=== PATIENT | male | born 1965 ===

== ENCOUNTER 2019-05-05 23:57 | Emergency (ER) | payer SELFPAY ==
[~2019-05-05 23:57] MED LIST: EPINEPHrine 1:10,000 1 MG/10 ML SYRINGE ONE; SODIUM BICARB 8.4% 50 MEQ/50 ML SYRINGE IV ONE
--- NOTE | 2019-05-06 00:09 | Emergency Department Report ---
ED CPR HPI - General Stated Complaint: CARDIAC ARREST Time Seen by Provider: 05/05/19 23:59 Source: EMS Mode of arrival: Stretcher Limitations: Altered Mental Status, Physical Limitation - History of Present Illness Initial Comments: Patient is a 54-year-old male that presents emergency room in full cardiac arrest. Downtime is unknown. Family called EMS. EMS brought the patient in. EMS intubated the patient with a 7.02. EMS is given the patient 2 rounds of epi. Patient has a past medical history of diabetes, hypertension, hyperlipidemia, CHF. MD Complaint: found unresponsive -: unknown Place: home Bystander CPR Performed: Yes AED Applied by Bystander/Journeyman Powerhouse Operator: No Shock Advised: No Initial Findings in the Field: unresponsive, no respirations, no pulse ROSC in the Field: No Associated Injuries: No Treatments Prior to Arrival: intubation, BMV, chest compressions, epinephrine mgs # - Related Data Allergies Allergy/AdvReac Type Severity Reaction Status Date / Time Unable to Assess Allergy Unverified 05/06/19 00:43 ED Review of Systems ROS: Stated complaint: CARDIAC ARREST Other details as noted in HPI Comment: Unobtainable due to pts medical conditions ED Past Medical Hx - Past Medical History Previous Medical History?: Yes Hx Hypertension: Yes Hx Heart Attack/AMI: Yes Hx Congestive Heart Failure: Yes Hx Diabetes: Yes - Surgical History Past Surgical History?: Yes Additional Surgical History: Midline abdominal surgery. - Family History Family history: no significant - Social History Smoking Status: Unknown if ever smoked Substance Use Type: None ED Physical Exam - General Limitations: Altered Mental Status, Physical Limitation General appearance: obtunded - Head Head exam: Present: atraumatic, normocephalic - Eye Eye exam: Present: other (pupils fixed and dilated) - ENT ENT exam: Present: other (patient intubated) - Respiratory Respiratory exam: Present: decreased breath sounds (patient intubated and placement verify with bilateral breath sounds. No sounds over the epigastrium) - Cardiovascular Cardiovascular Exam: Present: other - GI/Abdominal GI/Abdominal exam: Present: soft, other (large midline scar noted. No sounds over the epigastrium ) - Rectal Rectal exam: Present: deferred - Extremities Exam Extremities exam: Present: normal inspection - Neurological Exam Neurological exam: Present: altered - Skin Skin exam: Present: warm, dry, intact, normal color. Absent: rash ED Course - Reevaluation(s) Reevaluation #1: Initial evaluation done. Patient is intubated by EMS. EMS report received. Patient has received 2 rounds of epi. Placement verified ET tube. Bilateral breath sounds noted. No sounds over the epigastrium. Patient is pulseless. Patient is a Laura monitor. CPR continued. 05/05/19 0464 Reevaluation #2: Resuscitation efforts terminated due to no signs of life. Patient given multiple medications. Patient asystole on the monitor. No cardiac motion noted. No pulse. Family support will be given once the family arrives. 05/06/19 00:03 Reevaluation #3: Family meeting done. Family support given. All questions answered family. 05/06/19 00:26 ED Medical Decision Making - Medical Decision Making Patient is a 54-year-old male emergency room with cardiac arrest. Patient's code ran in accordance with ACLS guidelines See code note, . Resuscitation efforts were terminated due to no signs of life. Family meeting done. Family support given. - Differential Diagnosis cardiac arrest, Critical Care Time: Yes Critical care time in (mins) excluding proc time.: 35 Critical care attestation.: If time is entered above; I have spent that time in minutes in the direct care of this critically ill patient, excluding procedure time. Critical Care Time: 35 minutes ED Disposition Clinical Impression: Cardiac arrest Disposition: DC-20 Is pt being admited?: No Does the pt Need Aspirin: No Condition: Undetermined Time of Disposition: 01:05
== END 2019-05-06 04:00 ==
LOC: ED 23:57
DX: I46.9 Cardiac arrest, cause unspecified (principal); I11.0 Hypertensive heart disease with heart failure; I50.9 Heart failure, unspecified; E11.9 Type 2 diabetes mellitus without complications
CPT/HCPCS: 92950; 99291; J0171